=== PATIENT | male | born 1975 | race Caucasian/White ===

== ENCOUNTER 2022-01-11 21:20 | Emergency (ER) | payer OTHER ==
[2022-01-11 23:19] LABS: BLOOD UREA NITROGEN,BUN 10 mg/dL (7.0-18.0); CARBON DIOXIDE,CO2 18.9 mmol/L (21.0-32.0); CHLORIDE,CL 98 mmol/L (98-107); GLUCOSE RANDOM 304 mg/dL (74-106); POTASSIUM,K 3.7 mmol/L (3.5-5.1); SODIUM,NA 133 mmol/L (136-148)
[2022-01-12] MEDS ORDERED: Ibuprofen 800 MG Tab PO STA (00:24)
== END 2022-01-12 00:31 | disposition home or self-care (01) ==
LOC: MW.ED 21:20
DX: M25.551 Pain in right hip (principal); R60.0 Localized edema; M54.50 Low back pain, unspecified; R73.9 Hyperglycemia, unspecified; Z79.84 Long term (current) use of oral hypoglycemic drugs; Z79.899 Other long term (current) drug therapy
CPT/HCPCS: 36415; 72100; 73502; 80053; 81003; 83735; 85025; 85610; 85730; 93971; 99284; A9270

== ENCOUNTER 2022-11-29 17:25 | Inpatient (IN) | payer MEDICAID ==
[2022-11-29] MEDS ORDERED: Sodium Chloride 0.9% 10 ML Syringe FLUSH PRN (19:28)
[2022-11-29] MEDS ORDERED: Sodium Chloride 0.9% 2.5 ML Syringe FLUSH PRN (19:28)
[2022-11-29] MEDS ORDERED: Sodium Chloride 0.9% 1,000 ML IV ONE (19:28)
[2022-11-29] MEDS ORDERED: Piperacillin/Tazobactam 4.5 GM in Sodium Chloride 0.9% 100 ML IV ONE (19:28)
[2022-11-29] MEDS ORDERED: Sodium Chloride 0.9% 100 ML ONE (19:43)
[2022-11-29] MEDS ORDERED: VANCOmycin 1.5 GM/300 ML 1.5 GM in Premix Bag 1 BAG IV SCH (20:00)
[2022-11-29 20:35] LABS: CARBON DIOXIDE,CO2 24.2 mmol/L (21.0-32.0); POTASSIUM,K 3.8 mmol/L (3.5-5.1)
[2022-11-29] MEDS ORDERED: Iopamidol 755 MG/ML 500 ML Multipack Bottle IVPUSH STA (21:39)
[2022-11-30] MEDS ORDERED: 50% Dextrose in Water 50 ML Syringe IVPUSH PRN (00:43)
[2022-11-30] MEDS ORDERED: Glucagon,Human Recombinant 1 MG Vial IM PRN (00:43)
[2022-11-30] MEDS: oxyCODONE 5 MG Tab PO PRN ×6 (01:02→23:13)
[2022-11-30] MEDS ORDERED: Piperacillin/Tazobactam 3.375 GM in Sodium Chloride 0.9% 50 ML IV SCH (02:00)
[2022-11-30] MEDS ORDERED: Sodium Chloride 0.9% 50 ML ONE (02:00)
[2022-11-30] MEDS: Acetaminophen 325 MG Tab PO PRN ×3 (02:21→20:51)
[2022-11-30 06:22] LABS: CARBON DIOXIDE,CO2 24.5 mmol/L (21.0-32.0); POTASSIUM,K 3.8 mmol/L (3.5-5.1)
[2022-11-30] MEDS: Insulin Aspart 100 Units/ML 3 ML Pen SUBCUT SCH ×3 (07:51→17:11)
[2022-11-30] MEDS: Piperacillin/Tazobactam 3.375 GM in Sodium Chloride 0.9% 100 ML IV SCH ×3 (08:00→19:57)
[2022-11-30] MEDS ORDERED: Ondansetron 4 MG/2 ML SDV IVPUSH PRN (08:09)
[2022-11-30] MEDS ORDERED: Docusate Sodium 100 MG Cap PO PRN (08:09)
[2022-11-30] MEDS ORDERED: Sodium Chloride 0.9% 10 ML Syringe FLUSH PRN (08:09)
[2022-11-30] MEDS ORDERED: Sodium Chloride 0.9% 2.5 ML Syringe FLUSH PRN (08:09)
[2022-11-30] MEDS ORDERED: Polyethylene Glycol 3350 Powder 17 GM Packet PO PRN (08:09)
[2022-11-30] MEDS: Enoxaparin 40 MG/0.4 ML Syringe SUBCUT SCH (08:51)
[2022-11-30] MEDS: Gabapentin 300 MG Cap PO SCH ×2 (14:33→23:14)
[2022-12-01] MEDS: Piperacillin/Tazobactam 3.375 GM in Sodium Chloride 0.9% 100 ML IV SCH ×2 (01:39→08:44)
[2022-12-01] MEDS: Gabapentin 300 MG Cap PO SCH (06:35)
[2022-12-01 06:47] LABS: CARBON DIOXIDE,CO2 25.6 mmol/L (21.0-32.0); HEMOGLOBIN A1C 7.9 %; POTASSIUM,K 4.4 mmol/L (3.5-5.1)
[2022-12-01] MEDS: Insulin Aspart 100 Units/ML 3 ML Pen SUBCUT SCH (07:53)
[2022-12-01] MEDS: Enoxaparin 40 MG/0.4 ML Syringe SUBCUT SCH (08:41)
[2022-12-01] MEDS ORDERED: Aspirin 81 MG Tab.EC PO SCH (09:00)
[2022-12-01] MEDS ORDERED: Empagliflozin 10 MG Tab PO SCH (09:00)
[2022-12-01] MEDS ORDERED: Lisinopril 10 MG Tab PO SCH (09:00)
== END 2022-12-01 12:45 | disposition home or self-care (01) | DRG 603 ==
LOC: MW.ED 17:25 → MW.MS 22:54
PROVIDERS: ADMIT Internal Medicine; ATTEND Internal Medicine
DX: L03.115 Cellulitis of right lower limb (principal); I10 Essential (primary) hypertension; M85.80 Other specified disorders of bone density and structure, unspecified site; E78.00 Pure hypercholesterolemia, unspecified; E11.40 Type 2 diabetes mellitus with diabetic neuropathy, unspecified; E66.9 Obesity, unspecified; Z79.82 Long term (current) use of aspirin; Z79.899 Other long term (current) drug therapy; Z68.34 Body mass index [BMI] 34.0-34.9, adult
CPT/HCPCS: 36415; 73701-26-RT; 73701-RT; 80048; 80053; 80202; 82947; 83036; 83605; 83735; 85025; 87040; 96365; 96366; 96367; 99284-25; A9270-GY; J1650; J1815-GY; J2543; J3370; J3490; J7030; J7050; Q9967

== ENCOUNTER 2023-02-09 16:18 | Emergency (ER) | payer MEDICAID ==
[2023-02-09] MEDS ORDERED: Sodium Chloride 0.9% 10 ML Syringe FLUSH PRN (17:29)
[2023-02-09] MEDS ORDERED: Sodium Chloride 0.9% 2.5 ML Syringe FLUSH PRN (17:29)
[2023-02-09] MEDS ORDERED: Sodium Chloride 0.9% 1,000 ML IV STA (17:36)
[2023-02-09] MEDS ORDERED: Acetaminophen 500 MG Tab PO STA (17:37)
[2023-02-09] MEDS ORDERED: Piperacillin/Tazobactam 3.375 GM in Sodium Chloride 0.9% 100 ML IV STA (17:37)
[2023-02-09] MEDS ORDERED: VANCOmycin 2 GM/400 ML 2 GM in Premix Bag 1 BAG IV ONE (17:45)
[2023-02-09 17:51] LABS: BASOPHILS ABSOLUTE AUTO 0.1 K/uL (0.0-0.1); BASOPHILS PERCENT AUTO 0.4 % (0.0-1.5); EOSINOPHILS ABSOLUTE AUTO 0.3 K/uL (0.0-0.7); EOSINOPHILS PERCENT AUTO 2.2 % (0.0-7.0); HEMATOCRIT 47.5 % (38.0-50.0); HEMOGLOBIN 16.4 g/dL (13.0-17.0); LYMPHOCYTES ABSOLUTE AUTO 1.7 K/uL (0.6-2.4); LYMPHOCYTES PERCENT AUTO 13.3 % (16.0-40.0); MEAN CORPUSCULAR HEMOGLOBIN 31.9 pg (27.0-32.0); MEAN CORPUSCULAR HGB CONC 34.5 g/dL (31.0-37.0); MEAN CORPUSCULAR VOLUME 92.4 fL (80.0-98.0); MONOCYTES ABSOLUTE AUTO 1.2 K/uL (0.0-0.8); MONOCYTES PERCENT AUTO 9.4 % (0.0-15.0); NEUTROPHILS ABSOLUTE AUTO 9.7 K/uL (1.4-5.7); NEUTROPHILS PERCENT AUTO 74.7 % (48.0-80.0); NRBC ABSOLUTE 0 K/uL; PLATELET COUNT,PLT 216 K/uL (150-400); RED BLOOD CELL COUNT 5.14 M/uL (4.50-5.90); WHITE BLOOD CELL COUNT,WBC 12.91 K/uL (4.0-11.0)
[2023-02-09 18:13] LABS: A/G RATIO 1.1 (0.9-1.6); BILIRUBIN TOTAL 0.9 mg/dL (0.2-1.0); CALCIUM 8.8 mg/dL (8.5-10.1); CREATININE 1.2 mg/dL (0.8-1.3); EST CRCL DRUG DOSING (CG) 78.58 mL/min; PROTEIN TOTAL,TP 7.6 g/dL (6.4-8.2)
[2023-02-09 18:17] LABS: LACTIC ACID 1.7 mmol/L (0.4-2.0)
[2023-02-09] MEDS ORDERED: Iopamidol 755 MG/ML 500 ML Multipack Bottle IVPUSH ONE (18:45)
[2023-02-09] MEDS ORDERED: Ondansetron 4 MG/2 ML SDV IVPUSH STA (18:50)
[2023-02-09] MEDS ORDERED: Clindamycin HCl 150 MG Cap PO STA (21:41)
[2023-02-09] MEDS ORDERED: oxyCODONE 5 MG Tab PO STA (22:10)
== END 2023-02-09 22:27 | disposition home or self-care (01) ==
LOC: MW.ED 16:18 → EEVIPCON 16:18 → MW.ED 22:27
DX: L02.611 Cutaneous abscess of right foot (principal); E11.65 Type 2 diabetes mellitus with hyperglycemia; E66.9 Obesity, unspecified; I10 Essential (primary) hypertension; Z68.32 Body mass index [BMI] 32.0-32.9, adult; Z79.82 Long term (current) use of aspirin; Z79.899 Other long term (current) drug therapy
CPT/HCPCS: 36415; 73701; 80053; 83605; 85025; 87040; 87070; 87077; 87186; 87205; 96365; 96366; 96367; 96375; 99284; A9270; J2405; J2543; J3370; J3490; J7030; Q9967; 87075

== ENCOUNTER 2023-03-30 04:53 | Emergency (ER) | payer MEDICAID ==
[2023-03-30] MEDS ORDERED: Ketorolac 30 MG/ML SDV IVPUSH ONE (05:17)
[2023-03-30] MEDS ORDERED: Morphine 4 MG/ML Syringe IVPUSH ONE (05:17)
== END 2023-03-30 07:26 | disposition home or self-care (01) ==
LOC: MW.ED 04:53
DX: M25.562 Pain in left knee (principal); I10 Essential (primary) hypertension; E11.40 Type 2 diabetes mellitus with diabetic neuropathy, unspecified; E66.9 Obesity, unspecified; Z68.31 Body mass index [BMI] 31.0-31.9, adult; Z79.899 Other long term (current) drug therapy; Z79.82 Long term (current) use of aspirin
CPT/HCPCS: 73562; 96374; 96375; 99283; J1885; J2270

== ENCOUNTER 2023-05-26 15:46 | Emergency (ER) | payer MEDICAID ==
[2023-05-26] MEDS ORDERED: Sodium Chloride 0.9% 2.5 ML Syringe FLUSH PRN (17:03)
[2023-05-26] MEDS ORDERED: Sodium Chloride 0.9% 10 ML Syringe FLUSH PRN (17:03)
[2023-05-26] MEDS ORDERED: Clindamycin Phosphate in D5W 600 MG in Premix Bag 1 BAG IV ONE ×2 (17:05)
[2023-05-26] MEDS ORDERED: Acetaminophen/oxyCODONE 325-5 MG Tab PO ONE (17:06)
[2023-05-26 17:34] LABS: BASOPHILS PERCENT AUTO 0.6 % (0.0-1.5); EOSINOPHILS ABSOLUTE AUTO 0.3 K/uL (0.0-0.7); EOSINOPHILS PERCENT AUTO 4.2 % (0.0-7.0); HEMATOCRIT 48.6 % (38.0-50.0); HEMOGLOBIN 16.8 g/dL (13.0-17.0); LYMPHOCYTES ABSOLUTE AUTO 2.2 K/uL (0.6-2.4); LYMPHOCYTES PERCENT AUTO 31.5 % (16.0-40.0); MEAN CORPUSCULAR HGB CONC 34.6 g/dL (31.0-37.0); MEAN CORPUSCULAR VOLUME 89.7 fL (80.0-98.0); MONOCYTES ABSOLUTE AUTO 0.6 K/uL (0.0-0.8); MONOCYTES PERCENT AUTO 8.3 % (0.0-15.0); NEUTROPHILS ABSOLUTE AUTO 3.8 K/uL (1.4-5.7); NEUTROPHILS PERCENT AUTO 55.4 % (48.0-80.0); NRBC ABSOLUTE 0 K/uL; PLATELET COUNT,PLT 260 K/uL (150-400); RED BLOOD CELL COUNT 5.42 M/uL (4.50-5.90); WHITE BLOOD CELL COUNT,WBC 6.89 K/uL (4.0-11.0)
[2023-05-26 18:10] LABS: ALANINE AMINOTRANSFERASE,ALT 34 IU/L (14-63); ALBUMIN 4.2 g/dL (3.4-5.0); ALKALINE PHOSPHATASE 66 U/L (46-116); ASPARTATE AMNIOTRANSFERASE,AST 20 IU/L (15-37); BILIRUBIN TOTAL 0.8 mg/dL (0.2-1.0); BLOOD UREA NITROGEN,BUN 12 mg/dL (7.0-18.0); CALCIUM 8.8 mg/dL (8.5-10.1); CHLORIDE,CL 103 mmol/L (98-107); CREATININE 1.1 mg/dL (0.8-1.3); EST CRCL DRUG DOSING (CG) 85.72 mL/min; GLUCOSE RANDOM 120 mg/dL (74-106); POTASSIUM,K 3.9 mmol/L (3.5-5.1); PROTEIN TOTAL,TP 8.4 g/dL (6.4-8.2); SODIUM,NA 136 mmol/L (136-148)
[2023-05-26 18:11] LABS: C-REACTIVE PROTEIN < 0.20 mg/dL (0.00-0.90); ESTIMATED GFR 83 mL/min (>60)
[2023-05-26 18:13] LABS: LACTIC ACID 1.2 mmol/L (0.4-2.0)
== END 2023-05-26 18:40 | disposition home or self-care (01) ==
LOC: MW.ED 15:46
DX: E11.621 Type 2 diabetes mellitus with foot ulcer (principal); L89.619 Pressure ulcer of right heel, unspecified stage; F17.210 Nicotine dependence, cigarettes, uncomplicated; I10 Essential (primary) hypertension; E11.40 Type 2 diabetes mellitus with diabetic neuropathy, unspecified; E78.00 Pure hypercholesterolemia, unspecified; E66.9 Obesity, unspecified; Z79.899 Other long term (current) drug therapy; Z79.82 Long term (current) use of aspirin; Z68.32 Body mass index [BMI] 32.0-32.9, adult
CPT/HCPCS: 36415; 73620; 80053; 83605; 85025; 86140; 87040; 96365; 99283; A9270; J3490

== ENCOUNTER 2023-07-20 11:48 | Emergency (ER) | payer MEDICAID ==
[2023-07-20] MEDS ORDERED: Sodium Chloride 0.9% 2.5 ML Syringe FLUSH PRN (12:17)
[2023-07-20] MEDS ORDERED: Piperacillin/Tazobactam 3.375 GM in Sodium Chloride 0.9% 100 ML IV ONE (12:17)
[2023-07-20] MEDS ORDERED: Sodium Chloride 0.9% 1,000 ML IV ONE (12:17)
[2023-07-20] MEDS ORDERED: Sodium Chloride 0.9% 10 ML Syringe FLUSH PRN (12:17)
[2023-07-20] MEDS ORDERED: VANCOmycin 2 GM/400 ML 2 GM in Premix Bag 1 BAG IV ONE ×2 (12:30→13:30)
[2023-07-20] MEDS ORDERED: Cefepime 2 GM in Sodium Chloride 0.9% 50 ML IV ONE (12:42)
[2023-07-20 12:56] LABS: BASOPHILS ABSOLUTE AUTO 0.08 K/uL (0.00-0.20); BASOPHILS PERCENT AUTO 0.7 % (0.0-1.0); EOSINOPHILS ABSOLUTE AUTO 0.28 K/uL (0.00-0.45); EOSINOPHILS PERCENT AUTO 2.6 % (0.0-6.0); HEMATOCRIT 44.2 % (42.0-52.0); HEMOGLOBIN 15.4 g/dL (14.0-18.0); IMMATURE GRAN ABSOLUTE AUTO 0.15 K/uL (0.00-0.05); IMMATURE GRAN PERCENT AUTO 1.4 % (0.0-0.4); LYMPHOCYTES PERCENT AUTO 15.6 % (24.0-44.0); MEAN CORPUSCULAR HEMOGLOBIN 30.7 pg (28.0-32.0); MEAN CORPUSCULAR HGB CONC 34.8 g/dL (32.0-36.0); MEAN CORPUSCULAR VOLUME 88.2 fL (83.0-99.0); MEAN PLATELET VOLUME 8.7 fL (9.4-12.4); MONOCYTES ABSOLUTE AUTO 0.74 K/uL (0.00-0.80); MONOCYTES PERCENT AUTO 6.8 % (0.0-8.0); NEUTROPHILS ABSOLUTE AUTO 7.97 K/uL (1.80-7.70); NEUTROPHILS PERCENT AUTO 72.9 % (41.0-71.0); PLATELET COUNT,PLT 339 K/uL (150-400); RED BLOOD CELL COUNT 5.01 M/uL (4.52-5.90); WHITE BLOOD CELL COUNT,WBC 10.92 K/uL (3.9-11.3)
[2023-07-20 13:07] LABS: BASE EXCESS VENOUS 1.3 (-2.0-3.0); BICARBONATE,VENOUS 28 mEq/L (23-28); PCO2 VENOUS 51 mmHG (41-51); PH,VENOUS 7.35 (7.31-7.41)
[2023-07-20 13:14] LABS: PO2 VENOUS < 30 mmHG
[2023-07-20 13:42] LABS: A/G RATIO 0.9 (0.9-1.6); BILIRUBIN TOTAL 0.7 mg/dL (0.2-1.0); C-REACTIVE PROTEIN 5.66 mg/dL (<0.3); CALCIUM 9.9 mg/dL (8.5-10.1); CARBON DIOXIDE,CO2 27.3 mmol/L (21.0-32.0); CREATININE 1.1 mg/dL (0.8-1.3); EST CRCL DRUG DOSING (CG) 84.8 mL/min; POTASSIUM,K 4.9 mmol/L (3.5-5.1); PROTEIN TOTAL,TP 8.7 g/dL (6.4-8.2)
[2023-07-20 13:46] LABS: LACTIC ACID 1.1 mmol/L (0.4-2.0)
== END 2023-07-20 15:35 | disposition home or self-care (01) ==
LOC: MW.ED 11:48
DX: M86.8X7 Other osteomyelitis, ankle and foot (principal); I10 Essential (primary) hypertension; E78.00 Pure hypercholesterolemia, unspecified; E11.9 Type 2 diabetes mellitus without complications; E66.9 Obesity, unspecified; Z79.82 Long term (current) use of aspirin; Z79.899 Other long term (current) drug therapy; Z68.32 Body mass index [BMI] 32.0-32.9, adult
CPT/HCPCS: 36415; 73630; 80053; 82803; 83605; 85025; 85652; 86140; 87040; 96365; 96366; 96367; 99283; J0692; J3370; J3490; J7030

== ENCOUNTER 2024-01-27 04:24 | Emergency (ER) | payer MEDICAID, OTHER ==
[2024-01-27 04:38] LABS: BASOPHILS ABSOLUTE AUTO 0.07 K/uL (0.00-0.20); BASOPHILS PERCENT AUTO 0.8 % (0.0-1.0); EOSINOPHILS ABSOLUTE AUTO 0.37 K/uL (0.00-0.45); EOSINOPHILS PERCENT AUTO 4.4 % (0.0-6.0); HEMOGLOBIN 16.2 g/dL (14.0-18.0); IMMATURE GRAN ABSOLUTE AUTO 0.11 K/uL (0.00-0.05); IMMATURE GRAN PERCENT AUTO 1.3 % (0.0-0.4); LYMPHOCYTES ABSOLUTE AUTO 2.69 K/uL (1.00-4.80); LYMPHOCYTES PERCENT AUTO 32.2 % (24.0-44.0); MEAN CORPUSCULAR HEMOGLOBIN 30.6 pg (28.0-32.0); MEAN CORPUSCULAR HGB CONC 34.5 g/dL (32.0-36.0); MEAN CORPUSCULAR VOLUME 88.8 fL (83.0-99.0); MEAN PLATELET VOLUME 9.6 fL (9.4-12.4); MONOCYTES ABSOLUTE AUTO 0.69 K/uL (0.00-0.80); MONOCYTES PERCENT AUTO 8.3 % (0.0-8.0); NEUTROPHILS ABSOLUTE AUTO 4.43 K/uL (1.80-7.70); PLATELET COUNT,PLT 257 K/uL (150-400); RED BLOOD CELL COUNT 5.29 M/uL (4.52-5.90); WHITE BLOOD CELL COUNT,WBC 8.36 K/uL (3.9-11.3)
[2024-01-27] MEDS: Sodium Chloride 0.9% 1,000 ML IV ONE (04:48)
[2024-01-27] MEDS: Ketorolac 30 MG/ML SDV IVPUSH ONE (04:48)
[2024-01-27 04:50] LABS: APPEARANCE,URINE CLEAR; BILIRUBIN,URINE NEGATIVE (NEGATIVE); COLOR,URINE YELLOW; GLUCOSE,URINE >=1000 mg/dL (NEGATIVE); KETONES,URINE NEGATIVE (NEGATIVE); LEUKOCYTE ESTERASE,URINE NEGATIVE (NEGATIVE); NITRITE,URINE NEGATIVE (NEGATIVE); OCCULT BLOOD,URINE NEGATIVE (NEGATIVE); PROTEIN,URINE NEGATIVE (NEGATIVE); UROBILINOGEN,URINE 0.2 EU/dL (<2.0)
[2024-01-27 05:02] LABS: ALBUMIN 3.9 g/dL (3.4-5.0); BILIRUBIN TOTAL 0.7 mg/dL (0.2-1.0); CALCIUM 8.9 mg/dL (8.5-10.1); CARBON DIOXIDE,CO2 22.8 mmol/L (21.0-32.0); CREATININE 1.3 mg/dL (0.8-1.3); EST CRCL DRUG DOSING (CG) 71.75 mL/min; POTASSIUM,K 4.1 mmol/L (3.5-5.1); PROTEIN TOTAL,TP 7.7 g/dL (6.4-8.2)
[2024-01-27] MEDS: Ondansetron 4 MG/2 ML SDV IVPUSH ONE (05:56)
[2024-01-27] MEDS: Tamsulosin 0.4 MG Cap.ER PO ONE (05:56)
[2024-01-27] MEDS: fentaNYL 50 MCG/ML SDV IVPUSH ONE (05:56)
[2024-01-27] MEDS: Levofloxacin/Dextrose 5%-Water 750 MG in Premix Bag 1 BAG IV ONE (07:01)
== END 2024-01-27 09:22 | disposition home or self-care (01) ==
LOC: MW.ED 04:24
DX: M54.9 Dorsalgia, unspecified (principal); I10 Essential (primary) hypertension; E11.9 Type 2 diabetes mellitus without complications; Z75.8 Other problems related to medical facilities and other health care; Z79.82 Long term (current) use of aspirin; Z79.85 Long-term (current) use of injectable non-insulin antidiabetic drugs; Z79.899 Other long term (current) drug therapy
CPT/HCPCS: 36415; 74176; 76705; 80053; 81003; 83690; 85025; 96361; 96365; 96366; 96375; 99284; A9270; J1885; J1956; J2405; J3010; J7030

== ENCOUNTER 2025-03-12 13:05 | Emergency (ER) | payer MEDICAID ==
[2025-03-12] MEDS: Ketorolac 30 MG/ML SDV IVPUSH ONE (13:31)
[2025-03-12 13:44] LABS: BASOPHILS ABSOLUTE AUTO 0.07 K/uL (0.00-0.20); BASOPHILS PERCENT AUTO 0.8 % (0.0-1.0); EOSINOPHILS ABSOLUTE AUTO 0.17 K/uL (0.00-0.45); EOSINOPHILS PERCENT AUTO 2.0 % (0.0-6.0); IMMATURE GRAN ABSOLUTE AUTO 0.03 K/uL (0.00-0.05); IMMATURE GRAN PERCENT AUTO 0.3 % (0.0-0.4); LYMPHOCYTES ABSOLUTE AUTO 2.32 K/uL (1.00-4.80); LYMPHOCYTES PERCENT AUTO 27.0 % (24.0-44.0); MEAN PLATELET VOLUME 9.3 fL (9.4-12.4); MONOCYTES ABSOLUTE AUTO 0.74 K/uL (0.00-0.80); MONOCYTES PERCENT AUTO 8.6 % (0.0-8.0); NEUTROPHILS ABSOLUTE AUTO 5.27 K/uL (1.80-7.70); NEUTROPHILS PERCENT AUTO 61.3 % (41.0-71.0); NRBC ABSOLUTE 0.00 K/uL (0.00-0.02); NRBC PERCENT 0.0 /100WBC (0.0-0.2); PLATELET COUNT,PLT 267 K/uL (150-400); RED BLOOD CELL COUNT 5.35 M/uL (4.52-5.90); WHITE BLOOD CELL COUNT,WBC 8.60 K/uL (3.9-11.3)
[2025-03-12 14:06] LABS: A/G RATIO 1.2 (0.9-1.6); ALANINE AMINOTRANSFERASE,ALT 35.0 IU/L (14-63); ASPARTATE AMNIOTRANSFERASE,AST 21.0 IU/L (15-37); BILIRUBIN TOTAL 1.3 mg/dL (0.2-1.0); BLOOD UREA NITROGEN,BUN 24.0 mg/dL (7.0-18.0); CARBON DIOXIDE,CO2 26.5 mmol/L (21.0-32.0); CHLORIDE,CL 98.0 mmol/L (98-107); CREATININE 1.5 mg/dL (0.8-1.3); EST CRCL DRUG DOSING (CG) 61.51 mL/min; GLUCOSE RANDOM 128.0 mg/dL (74-106); POTASSIUM,K 4.0 mmol/L (3.5-5.1); PROTEIN TOTAL,TP 8.3 g/dL (6.4-8.2); SODIUM,NA 135.0 mmol/L (136-148)
[2025-03-12 14:11] LABS: LACTIC ACID 1.1 mmol/L (0.4-2.0)
[2025-03-12 14:13] LABS: ESTIMATED GFR 57.0 mL/min (>60)
[2025-03-12] MEDS: Ondansetron 4 MG/2 ML SDV IVPUSH ONE (15:02)
== END 2025-03-12 15:17 | disposition home or self-care (01) ==
LOC: MW.ED 13:05
DX: M10.9 Gout, unspecified (principal); L03.113 Cellulitis of right upper limb; E86.0 Dehydration; I10 Essential (primary) hypertension; E11.9 Type 2 diabetes mellitus without complications; Z79.82 Long term (current) use of aspirin; Z79.899 Other long term (current) drug therapy; Z75.3 Unavailability and inaccessibility of health-care facilities
CPT/HCPCS: 20605; 36415; 80053; 83605; 84550; 85025; 85652; 86140; 87040; 96361; 96374; 96375; 99283; J1885; J2003; J2270; J2405; J7030